=== PATIENT | male | born 1980 | race Hispanic/Latino ===

== ENCOUNTER 2017-12-18 08:29 | Day surgery (SDC) | payer BC ==
[2017-12-17 13:31] VITALS: BMI 25.7
[2017-12-18] MEDS ORDERED: Midazolam 2 MG/2 ML VIAL ONE (09:53)
[2017-12-18] MEDS ORDERED: Propofol 10 mg/ml Inj (20 ML) ONE (09:53)
[2017-12-18] MEDS ORDERED: Lactated Ringer's 500 ML IV ONE ×2 (10:04)
[2017-12-18 10:58] VITALS: TEMP 98.4
[2017-12-18 11:31] VITALS: BP 136/88; PULSE 60; RESP 10; O2SAT 100
== END 2017-12-18 11:24 | disposition home or self-care (01) ==
LOC: C.ENDO 08:29
PROVIDERS: ATTEND Internal Medicine Gastroenterology
DX: D12.2 Benign neoplasm of ascending colon (principal); D12.5 Benign neoplasm of sigmoid colon; K59.00 Constipation, unspecified
CPT/HCPCS: 45380; 45385; 88305; J2001; J2250; J2704; J7120